=== PATIENT | male | born 1965 | race Caucasian/White ===

== ENCOUNTER 2019-12-25 06:07 | Inpatient (IN) ==
[~2019-12-25 06:07] MED LIST: Acetaminophen IV 1,000 MG/100 ML INFUS..BTL IVPB ONE; Famotidine 20 MG/2 ML VIAL IVP ONE; Pregabalin 75 MG CAPSULE PO PRN
[2019-12-25] MEDS ORDERED: Lidocaine HCL 4 ML Topical Solution (Laryng-O-Jet Kit Sterile Pak) TP ONE (06:17)
[2019-12-25] MEDS ORDERED: *HR* Rocuronium Bromide 50 MG/5 ML VIAL ONE ×2 (06:17→09:13)
[2019-12-25] MEDS ORDERED: Dexamethasone 4 MG/ML VIAL ONE (06:17)
[2019-12-25] MEDS ORDERED: Ondansetron 4 MG/2 ML VIAL ONE (06:17)
[2019-12-25] MEDS ORDERED: Lidocaine -MPF 2% 2 ML VIAL ONE (06:17)
[2019-12-25] MEDS ORDERED: *HR* Phenylephrine 10 MG/ML VIAL ONE (06:18)
[2019-12-25] MEDS ORDERED: *HR* FentaNYL (PF) 100 MCG/2 ML VIAL ONE (06:18)
[2019-12-25] MEDS ORDERED: *HR* Propofol 200 MG/20 ML VIAL IVP ONE (06:18)
[2019-12-25] MEDS ORDERED: Heparin 1,000 UNITS/500 mL 500 ML ONE (06:28)
[2019-12-25] MEDS ORDERED: *HR* Heparin 5,000 UNIT/ML VIAL ONE (06:42)
[2019-12-25] MEDS ORDERED: CeFAZolin Syr 2,000MG/20 ML 2,000 MG/20 ML SYRINGE IVPB ONE (06:44)
[2019-12-25] MEDS ORDERED: Ringers Solution, Lactated 1,000 ML IVC SCH (06:45)
[2019-12-25] MEDS ORDERED: NiCARdipine 2.5 MG/10 ML Syringe IVPB ONE (06:48)
[2019-12-25] MEDS ORDERED: *HR* Remifentanil 2 MG VIAL IVP ONE (07:07)
[2019-12-25] MEDS ORDERED: Heparin 1,000 UNITS/500 mL 1,000 ML ONE (07:14)
[2019-12-25] MEDS ORDERED: *HR* Midazolam HCl 2 MG/2 ML VIAL ONE (07:24)
[2019-12-25 07:34] LABS: Adenovirus Not Detected (Not Detect); Bordetella Pertussis Not Detected (Not Detect); Chlamydophila pneumoniae Not Detected (Not Detect); Coronavirus 229E Not Detected (Not Detect); Coronavirus HKU1 Not Detected (Not Detect); Coronavirus NL63 Not Detected (Not Detect); Coronavirus OC43 Not Detected (Not Detect); Human Metapneumovirus Not Detected (Not Detect); Human Rhinovirus/Enterovirus Not Detected (Not Detect); Influenza A Subtype 2009 H1 Not Detected (Not Detect); Influenza B Not Detected (Not Detect); Mycoplasma pneumoniae Not Detected (Not Detect); Parainfluenza Virus 1 Not Detected (Not Detect); Parainfluenza Virus 2 Not Detected (Not Detect); Parainfluenza Virus 3 Not Detected (Not Detect); Parainfluenza Virus 4 Not Detected (Not Detect); Respiratory Syncytial Virus Not Detected (Not Detect); SARS-CoV-2 Not Detected (Not Detect)
[2019-12-25] MEDS ORDERED: ceFAZolin 1,000 MG, Sodium Chloride IRRigation 1,000 ML IR ONE (07:45)
[2019-12-25] MEDS ORDERED: *HR* Meperidine 25 MG/ML SYRINGE IVP PRN (07:48)
[2019-12-25] MEDS ORDERED: Ondansetron 4 MG/2 ML VIAL IVP PRN ×2 (07:48→13:30)
[2019-12-25] MEDS ORDERED: *HR* Labetalol 20 MG/4 ML SYRINGE IVP PRN (07:48)
[2019-12-25] MEDS ORDERED: Albuterol 2.5 MG/3 ML NEBULIZER IH PRN (07:48)
[2019-12-25] MEDS ORDERED: Naloxone 0.4 MG/ML INJ IVP PRN ×2 (07:48→13:30)
[2019-12-25] MEDS ORDERED: flumazeniL 0.5 MG/5 ML VIAL IVP PRN (07:48)
[2019-12-25] MEDS ORDERED: *HR* FentaNYL (PF) 100 MCG/2 ML VIAL IVP PRN (07:48)
[2019-12-25] MEDS ORDERED: *HR* HYDROmorphone PF 0.5 MG/0.5 ML SYRINGE IVP PRN (07:48)
[2019-12-25] MEDS ORDERED: Neostigmine Methylsulfate 3 MG/3 ML SYRINGE ONE (12:16)
[2019-12-25] MEDS ORDERED: Acetaminophen 325 MG TABLET PO PRN (13:30)
[2019-12-25] MEDS: *HR* Labetalol 20 MG/4 ML SYRINGE IVP PRN ×2 (14:02→22:15)
[2019-12-25] MEDS: *HR* HYDROcodone/Acet 5/325 mg TABLET PO PRN ×2 (14:03→22:54)
[2019-12-25] MEDS: CeFAZolin 2 GM/120 ML BAG IVPB SCH ×2 (15:42→23:27)
[2019-12-26 04:12] LABS: Basophils % 0.2 %; Eosinophils # 0.1 K/mcL (0.0-0.6); Eosinophils % 0.6 %; Hematocrit 34.7 % (37.5-50.1); Hemoglobin 11.6 g/dL (12.9-16.9); Immature Granulocytes % 0.2 % (0-4); Lymphocytes # 2.1 K/mcL (0.6-4.6); Lymphocytes % 16.9 %; Mean Corpuscular HGB Conc 33.4 g/dL (31.6-35.5); Mean Corpuscular Hemoglobin 33.5 pg (28.0-33.3); Mean Corpuscular Volume 100.3 fL (83.0-100.0); Monocytes # 1.9 K/mcL (0.0-1.3); Monocytes % 15.7 %; Neutrophils # 8.2 K/mcL (1.6-8.9); Platelet Count 237 K/mcL (140-400); Red Blood Count 3.46 M/mcL (4.19-5.50); Red Cell Distribution Width 12.6 % (11.5-14.5); Segmented Neutrophils % 66.4 %; White Blood Count 12.3 K/mcL (4.3-11.1)
[2019-12-26 04:33] LABS: BUN/Creatinine Ratio 13 (6-26); Blood Urea Nitrogen 9 mg/dL (6-20); Carbon Dioxide 28 mEq/L (23-29); Chloride 101 mEq/L (98-107); Glucose 127 mg/dL (70-105); Osmolality,Calculated 282 (280-300); Potassium 4.1 mEq/L (3.5-5.1); Sodium 136 mEq/L (136-145); eGFR For African Americans > 60 (> 60); eGFR For Non-African Americans > 60 (> 60)
[2019-12-26] MEDS: Cholecalciferol (D-3) 1,000 UNIT (25MCG) TABLET PO SCH (08:25)
[2019-12-26] MEDS: *HR* HYDROcodone/Acet 5/325 mg TABLET PO PRN (08:25)
[2019-12-26] MEDS: CeFAZolin 2 GM/120 ML BAG IVPB SCH (08:29)
[2019-12-26] MEDS: *HR* Labetalol 20 MG/4 ML SYRINGE IVP PRN (12:45)
[2019-12-26] MEDS: lisinopriL 20 MG TABLET PO SCH (14:13)
[2019-12-27] MEDS: lisinopriL 20 MG TABLET PO SCH (09:28)
[2019-12-27 09:38] VITALS: BP 123/79
[2019-12-27] MEDS: Cholecalciferol (D-3) 1,000 UNIT (25MCG) TABLET PO SCH (11:28)
[2019-12-28] MEDS ORDERED: LISINOPRIL 30 MG PO SCH (09:00)
== END 2019-12-27 13:25 | disposition home or self-care (01) | DRG 254 ==
LOC: SAMDAY 06:07 → ICNU 13:09
PROVIDERS: ADMIT Surgery Vascular Surgery; ATTEND Surgery Vascular Surgery

== ENCOUNTER 2020-08-22 15:35 | Inpatient (IN) ==
[2020-08-22] MEDS ORDERED: Isovue-370 500 ML BOTTLE IVP ONE (16:31)
[2020-08-22] MEDS ORDERED: *HR* Heparin 5,000 UNIT/ML VIAL IVP ONE (18:38)
[2020-08-22] MEDS ORDERED: *HR* Heparin 5,000 UNIT/ML VIAL IVP PRN (18:38)
[2020-08-22] MEDS: Heparin 25,000UNIT/250ML 1/2NS 25,000 UNIT/250 ML IV.SOLN IVC SCH (19:01)
[2020-08-22 19:03] LABS: Hemoglobin 14.5 g/dL (12.9-16.9); Mean Corpuscular Hemoglobin 32.4 pg (28.0-33.3); Mean Corpuscular Volume 98.2 fL (83.0-100.0); Mean Platelet Volume 9.7 fL (9.4-12.4); Platelet Count 314 K/mcL (140-400); Red Blood Count 4.48 M/mcL (4.19-5.50); White Blood Count 8.5 K/mcL (4.3-11.1)
[2020-08-22 19:10] LABS: INR 1.1; Prothrombin Time 12.8 Seconds (9.4-12.1)
[2020-08-22 19:21] LABS: Heparin anti-factor XA UFH 0.05 IU/mL (0.30-0.70)
[2020-08-22] MEDS ORDERED: Naloxone 0.4 MG/ML INJ IVP PRN (21:58)
[2020-08-22] MEDS ORDERED: Melatonin 3 MG TABLET PO PRN (21:58)
[2020-08-22] MEDS ORDERED: Acetaminophen 325 MG TABLET PO PRN (21:58)
[2020-08-22] MEDS ORDERED: Ondansetron 4 MG/2 ML VIAL IVP PRN (21:58)
[2020-08-22 22:05] LABS: Alanine Aminotransferase 18 Units/L (7-52); Albumin 3.9 g/dL (3.5-5.7); Albumin/Globulin Ratio 1.4 (1.1-2.2); Alkaline Phosphatase 71 Units/L (34-104); Aspartate Amino Transferase 17 Units/L (13-39); BUN/Creatinine Ratio 10 (6-26); Bilirubin,Total 0.6 mg/dL (0.3-1.0); Blood Urea Nitrogen 8 mg/dL (6-20); Calcium 9.4 mg/dL (8.6-10.3); Carbon Dioxide 29 mEq/L (23-29); Chloride 101 mEq/L (98-107); Globulin 2.8 g/dL (2.4-3.5); Glucose 95 mg/dL (70-105); Osmolality,Calculated 284 (280-300); Potassium 4.9 mEq/L (3.5-5.1); Sodium 138 mEq/L (136-145); Total Protein 6.7 g/dL (6.4-8.9); eGFR For African Americans > 60 (> 60); eGFR For Non-African Americans > 60 (> 60)
[2020-08-23 01:00] LABS: Basophils # 0.1 K/mcL (0.0-0.2); Basophils % 0.5 %; Eosinophils # 0.3 K/mcL (0.0-0.6); Eosinophils % 2.7 %; Hematocrit 44.4 % (37.5-50.1); Hemoglobin 14.7 g/dL (12.9-16.9); Immature Granulocytes % 0.3 % (0-4); Lymphocytes # 2.6 K/mcL (0.6-4.6); Lymphocytes % 28.4 %; Mean Corpuscular HGB Conc 33.1 g/dL (31.6-35.5); Mean Corpuscular Hemoglobin 32.1 pg (28.0-33.3); Mean Corpuscular Volume 96.9 fL (83.0-100.0); Mean Platelet Volume 9.7 fL (9.4-12.4); Monocytes # 1.3 K/mcL (0.0-1.3); Monocytes % 13.9 %; Neutrophils # 4.9 K/mcL (1.6-8.9); Platelet Count 320 K/mcL (140-400); Red Blood Count 4.58 M/mcL (4.19-5.50); Segmented Neutrophils % 54.2 %; White Blood Count 9.1 K/mcL (4.3-11.1)
[2020-08-23 01:24] LABS: BUN/Creatinine Ratio 12 (6-26); Blood Urea Nitrogen 10 mg/dL (6-20); Calcium 9.6 mg/dL (8.6-10.3); Carbon Dioxide 30 mEq/L (23-29); Chloride 102 mEq/L (98-107); Glucose 123 mg/dL (70-105); Osmolality,Calculated 286 (280-300); Phosphorous 3.2 mg/dL (2.7-4.5); Potassium 4.2 mEq/L (3.5-5.1); Sodium 138 mEq/L (136-145); eGFR For African Americans > 60 (> 60); eGFR For Non-African Americans > 60 (> 60)
[2020-08-23] MEDS: *HR* Heparin 5,000 UNIT/ML VIAL IVP PRN ×3 (01:24→21:31)
[2020-08-23] MEDS: Heparin 25,000UNIT/250ML 1/2NS 25,000 UNIT/250 ML IV.SOLN IVC SCH (20:52)
[2020-08-24 03:46] LABS: Basophils # 0.1 K/mcL (0.0-0.2); Basophils % 0.6 %; Eosinophils # 0.4 K/mcL (0.0-0.6); Eosinophils % 4.4 %; Hematocrit 45.2 % (37.5-50.1); Hemoglobin 15.1 g/dL (12.9-16.9); Immature Granulocytes % 0.2 % (0-4); Lymphocytes # 2.4 K/mcL (0.6-4.6); Lymphocytes % 23.9 %; Mean Corpuscular HGB Conc 33.4 g/dL (31.6-35.5); Mean Corpuscular Hemoglobin 32.5 pg (28.0-33.3); Mean Corpuscular Volume 97.2 fL (83.0-100.0); Mean Platelet Volume 9.8 fL (9.4-12.4); Monocytes # 1.2 K/mcL (0.0-1.3); Monocytes % 11.8 %; Platelet Count 316 K/mcL (140-400); Red Blood Count 4.65 M/mcL (4.19-5.50); Segmented Neutrophils % 59.1 %; White Blood Count 10.1 K/mcL (4.3-11.1)
[2020-08-24 04:01] LABS: BUN/Creatinine Ratio 19 (6-26); Blood Urea Nitrogen 15 mg/dL (6-20); Calcium 9.2 mg/dL (8.6-10.3); Carbon Dioxide 24 mEq/L (23-29); Chloride 100 mEq/L (98-107); Glucose 105 mg/dL (70-105); Osmolality,Calculated 281 (280-300); Potassium 4.3 mEq/L (3.5-5.1); Sodium 135 mEq/L (136-145); eGFR For African Americans > 60 (> 60); eGFR For Non-African Americans > 60 (> 60)
[2020-08-24] MEDS: Cholecalciferol (D-3) 1,000 UNIT (25MCG) TABLET PO SCH (08:20)
[2020-08-24] MEDS: lisinopriL 10 MG TABLET PO SCH (08:21)
[2020-08-24] MEDS: Cyanocobalamin (B-12) 1,000 MCG TABLET PO SCH (08:21)
[2020-08-24] MEDS: Heparin 25,000UNIT/250ML 1/2NS 25,000 UNIT/250 ML IV.SOLN IVC SCH (19:59)
[2020-08-25 05:33] LABS: Basophils # 0.1 K/mcL (0.0-0.2); Basophils % 0.5 %; Eosinophils # 0.5 K/mcL (0.0-0.6); Eosinophils % 5.7 %; Hematocrit 45.5 % (37.5-50.1); Hemoglobin 15.7 g/dL (12.9-16.9); Immature Granulocytes % 0.1 % (0-4); Lymphocytes # 2.6 K/mcL (0.6-4.6); Lymphocytes % 28.2 %; Mean Corpuscular HGB Conc 34.5 g/dL (31.6-35.5); Mean Corpuscular Hemoglobin 33.1 pg (28.0-33.3); Mean Corpuscular Volume 95.8 fL (83.0-100.0); Mean Platelet Volume 9.8 fL (9.4-12.4); Monocytes # 1.2 K/mcL (0.0-1.3); Monocytes % 12.6 %; Neutrophils # 4.8 K/mcL (1.6-8.9); Platelet Count 336 K/mcL (140-400); Red Blood Count 4.75 M/mcL (4.19-5.50); Red Cell Distribution Width 11.8 % (11.5-14.5); Segmented Neutrophils % 52.9 %; White Blood Count 9.1 K/mcL (4.3-11.1)
[2020-08-25 05:52] LABS: BUN/Creatinine Ratio 21 (6-26); Blood Urea Nitrogen 18 mg/dL (6-20); Calcium 9.5 mg/dL (8.6-10.3); Carbon Dioxide 26 mEq/L (23-29); Chloride 102 mEq/L (98-107); Glucose 112 mg/dL (70-105); Osmolality,Calculated 281 (280-300); Potassium 4.4 mEq/L (3.5-5.1); Sodium 134 mEq/L (136-145); eGFR For African Americans > 60 (> 60); eGFR For Non-African Americans > 60 (> 60)
[2020-08-25] MEDS: Cholecalciferol (D-3) 1,000 UNIT (25MCG) TABLET PO SCH (07:53)
[2020-08-25] MEDS: Cyanocobalamin (B-12) 1,000 MCG TABLET PO SCH (07:53)
[2020-08-25] MEDS: lisinopriL 10 MG TABLET PO SCH (07:53)
[2020-08-25] MEDS ORDERED: CeFAZolin Syr 2,000MG/20 ML 2,000 MG/20 ML SYRINGE IVPB ONE ×3 (12:00→18:01)
[2020-08-25] MEDS ORDERED: Protamine Sulfate 50 MG/5 ML VIAL IVP ONE (12:17)
[2020-08-25] MEDS ORDERED: Heparin 1,000 UNITS/500 mL 1,000 ML ONE (12:17)
[2020-08-25] MEDS ORDERED: Ondansetron 4 MG/2 ML VIAL ONE (12:18)
[2020-08-25] MEDS ORDERED: *HR* Rocuronium Bromide 50 MG/5 ML VIAL ONE ×2 (12:18→14:16)
[2020-08-25] MEDS ORDERED: Lidocaine -MPF 2% 2 ML VIAL ONE (12:18)
[2020-08-25] MEDS ORDERED: *HR* Remifentanil 1 MG VIAL IVP ONE ×2 (12:19→15:41)
[2020-08-25] MEDS ORDERED: *HR* Midazolam HCl 2 MG/2 ML VIAL ONE (12:19)
[2020-08-25] MEDS ORDERED: *HR* Propofol 200 MG/20 ML VIAL IVP ONE (12:19)
[2020-08-25] MEDS ORDERED: *HR* FentaNYL (PF) 100 MCG/2 ML VIAL ONE (12:19)
[2020-08-25] MEDS ORDERED: Heparin 1,000 UNITS/500 mL 0 ML ONE (12:26)
[2020-08-25] MEDS ORDERED: Albumin Human 5% 12.5 GM/250 ML IV.SOLN ONE (12:32)
[2020-08-25] MEDS ORDERED: Acetaminophen IV 1,000 MG/100 ML BAG IVPB ONE (12:32)
[2020-08-25] MEDS ORDERED: EPHEDrine 50 MG/ML VIAL ONE (12:39)
[2020-08-25] MEDS ORDERED: Lidocaine Jelly 6ml 1 APPL/6 ML JEL.PF.APP ONE (13:28)
[2020-08-25] MEDS ORDERED: *HR* Phenylephrine 10 MG/ML VIAL ONE (14:26)
[2020-08-25] MEDS ORDERED: *HR* Heparin 5,000 UNIT/ML VIAL ONE (14:49)
[2020-08-25] MEDS ORDERED: Vancomycin 1,000 MG VIAL ONE (16:19)
[2020-08-25] MEDS ORDERED: Sugammadex Sodium 200 MG/2 ML VIAL IV ONE (16:22)
[2020-08-25] MEDS ORDERED: *HR* HYDROmorphone (PF) 1 MG/ML SYRINGE ONE (17:13)
[2020-08-25] MEDS: *HR* HYDROmorphone PF 0.5 MG/0.5 ML SYRINGE IVP PRN ×3 (17:14→17:25)
[2020-08-25] MEDS ORDERED: Ringers Solution, Lactated 1,000 ML ONE (17:36)
[2020-08-25] MEDS ORDERED: Acetaminophen 325 MG TABLET PO PRN (18:01)
[2020-08-25] MEDS ORDERED: Naloxone 0.4 MG/ML INJ IVP PRN ×2 (18:01)
[2020-08-25] MEDS ORDERED: *HR* Labetalol 20 MG/4 ML SYRINGE IVP PRN (18:01)
[2020-08-25] MEDS ORDERED: Melatonin 3 MG TABLET PO PRN (18:01)
[2020-08-25] MEDS ORDERED: Ondansetron 4 MG/2 ML VIAL IVP PRN (18:01)
[2020-08-25] MEDS: *HR* OxyCODONE Immed Rel 5 MG TABLET PO PRN (21:18)
[2020-08-25] MEDS: CeFAZolin 2 GM/120 ML BAG IVPB SCH (21:57)
[2020-08-26] MEDS ORDERED: CeFAZolin 2 GM/120 ML BAG IVPB SCH
[2020-08-26] MEDS: *HR* OxyCODONE Immed Rel 5 MG TABLET PO PRN (04:13)
[2020-08-26 05:14] LABS: Basophils % 0.1 %; Eosinophils % 0.1 %; Hematocrit 40.4 % (37.5-50.1); Immature Granulocytes % 0.4 % (0-4); Lymphocytes # 1.9 K/mcL (0.6-4.6); Lymphocytes % 13.3 %; Mean Corpuscular HGB Conc 33.7 g/dL (31.6-35.5); Mean Corpuscular Hemoglobin 33.1 pg (28.0-33.3); Mean Corpuscular Volume 98.3 fL (83.0-100.0); Monocytes # 2.3 K/mcL (0.0-1.3); Monocytes % 15.8 %; Platelet Count 285 K/mcL (140-400); Red Blood Count 4.11 M/mcL (4.19-5.50); Red Cell Distribution Width 11.9 % (11.5-14.5); Segmented Neutrophils % 70.3 %
[2020-08-26 05:15] LABS: Hemoglobin 13.6 g/dL (12.9-16.9); Neutrophils # 10.1 K/mcL (1.6-8.9); White Blood Count 14.3 K/mcL (4.3-11.1)
[2020-08-26] MEDS: CeFAZolin 2 GM/120 ML BAG IVPB SCH ×2 (05:28→14:20)
[2020-08-26 05:37] LABS: BUN/Creatinine Ratio 19 (6-26); Blood Urea Nitrogen 27 mg/dL (6-20); Calcium 9.1 mg/dL (8.6-10.3); Carbon Dioxide 28 mEq/L (23-29); Chloride 101 mEq/L (98-107); Glucose 139 mg/dL (70-105); Osmolality,Calculated 285 (280-300); Sodium 134 mEq/L (136-145); eGFR For African Americans > 60 (> 60); eGFR For Non-African Americans 53 (> 60)
[2020-08-26] MEDS: Cholecalciferol (D-3) 1,000 UNIT (25MCG) TABLET PO SCH (08:28)
[2020-08-26] MEDS: lisinopriL 10 MG TABLET PO SCH (08:29)
[2020-08-26] MEDS: Cyanocobalamin (B-12) 1,000 MCG TABLET PO SCH (08:30)
[2020-08-26] MEDS: 0.9 % Sodium Chloride 1,000 ML IVC SCH ×2 (09:05→19:15)
[2020-08-26] MEDS: *HR* HYDROcodone/Acet 5/325 mg TABLET PO PRN ×2 (11:19→21:48)
[2020-08-27] MEDS: *HR* OxyCODONE Immed Rel 5 MG TABLET PO PRN (03:18)
[2020-08-27] MEDS: 0.9 % Sodium Chloride 1,000 ML IVC SCH (05:17)
[2020-08-27] MEDS: Cyanocobalamin (B-12) 1,000 MCG TABLET PO SCH (07:14)
[2020-08-27] MEDS: lisinopriL 10 MG TABLET PO SCH (07:14)
[2020-08-27] MEDS: Cholecalciferol (D-3) 1,000 UNIT (25MCG) TABLET PO SCH (07:14)
[2020-08-27 09:11] LABS: BUN/Creatinine Ratio 23 (6-26); Blood Urea Nitrogen 18 mg/dL (6-20); Carbon Dioxide 26 mEq/L (23-29); Chloride 102 mEq/L (98-107); Glucose 109 mg/dL (70-105); Osmolality,Calculated 286 (280-300); Potassium 4.5 mEq/L (3.5-5.1); Sodium 137 mEq/L (136-145); eGFR For African Americans > 60 (> 60); eGFR For Non-African Americans > 60 (> 60)
[2020-08-27] MEDS: *HR* HYDROcodone/Acet 5/325 mg TABLET PO PRN (11:01)
[2020-08-27 11:16] VITALS: BP 137/88
== END 2020-08-27 17:55 | disposition home or self-care (01) | DRG 253 ==
LOC: 2NNU 15:35 → EMEROOARM 15:35 → SUATTDRO 20:29 → 2NNU 21:40 → SUATTDRO 08-24 17:19
PROVIDERS: ADMIT Student in an Organized Health Care Education/Training Program; ATTEND Internal Medicine

== ENCOUNTER 2020-10-14 06:03 | Inpatient (IN) ==
[2020-10-14] MEDS ORDERED: CeFAZolin Syr 2,000MG/20 ML 2,000 MG/20 ML SYRINGE IVPB ONE (06:19)
[2020-10-14] MEDS ORDERED: Ringers Solution, Lactated 1,000 ML IVC SCH (06:30)
[2020-10-14] MEDS ORDERED: Protamine Sulfate 50 MG/5 ML VIAL IVP ONE (07:17)
[2020-10-14] MEDS ORDERED: Heparin 1,000 UNITS/500 mL 500 ML ONE ×2 (07:17→12:14)
[2020-10-14] MEDS ORDERED: *HR* OxyCODONE Immed Rel 5 MG TABLET PO PRN (07:18)
[2020-10-14] MEDS ORDERED: Famotidine 20 MG/2 ML VIAL IVP ONE (07:18)
[2020-10-14] MEDS ORDERED: Pregabalin 75 MG CAPSULE PO ONE (07:18)
[2020-10-14] MEDS ORDERED: *HR* HYDROmorphone 2 MG TABLET PO PRN (07:18)
[2020-10-14] MEDS ORDERED: Acetaminophen IV 1,000 MG/100 ML BAG IVPB ONE ×2 (07:18→10:04)
[2020-10-14] MEDS ORDERED: *HR* FentaNYL (PF) 100 MCG/2 ML VIAL ONE (07:21)
[2020-10-14] MEDS ORDERED: *HR* Propofol 200 MG/20 ML VIAL IVP ONE (07:22)
[2020-10-14] MEDS ORDERED: *HR* Midazolam HCl 2 MG/2 ML VIAL ONE (07:22)
[2020-10-14] MEDS ORDERED: Lidocaine -MPF 2% 2 ML VIAL ONE ×2 (07:23→14:38)
[2020-10-14] MEDS ORDERED: *HR* Rocuronium Bromide 50 MG/5 ML VIAL ONE ×2 (07:23→08:25)
[2020-10-14] MEDS ORDERED: *HR* Succinylcholine 200 MG/10 ML VIAL IVP ONE (07:23)
[2020-10-14] MEDS ORDERED: Lidocaine HCL 4 ML Topical Solution (Laryng-O-Jet Kit Sterile Pak) TP ONE (07:23)
[2020-10-14] MEDS ORDERED: Ondansetron 4 MG/2 ML VIAL ONE (07:23)
[2020-10-14] MEDS ORDERED: *HR* Phenylephrine 10 MG/ML VIAL ONE (07:29)
[2020-10-14] MEDS ORDERED: ceFAZolin 1,000 MG, Sodium Chloride IRRigation 1,000 ML IR ONE (07:45)
[2020-10-14] MEDS ORDERED: Lidocaine Jelly 6ml 1 APPL/6 ML JEL.PF.APP ONE (08:20)
[2020-10-14] MEDS ORDERED: *HR* HYDROMORPHONE 2 MG/ML VIAL ONE (08:38)
[2020-10-14] MEDS ORDERED: Sugammadex Sodium 200 MG/2 ML VIAL IV ONE (12:19)
[2020-10-14] MEDS ORDERED: *HR* Labetalol 20 MG/4 ML SYRINGE IVP ONE (14:57)
[2020-10-14] MEDS: *HR* HYDROmorphone (PF) 1 MG/ML SYRINGE IVP PRN ×4 (15:43→16:20)
[2020-10-14] MEDS: *HR* Labetalol 20 MG/4 ML SYRINGE IVP PRN ×4 (16:00→16:20)
[2020-10-14] MEDS ORDERED: *HR* Labetalol 20 MG/4 ML SYRINGE IVP PRN (17:06)
[2020-10-14] MEDS ORDERED: Naloxone 0.4 MG/ML INJ IVP PRN (17:06)
[2020-10-14] MEDS ORDERED: Ondansetron 4 MG/2 ML VIAL IVP PRN (17:06)
[2020-10-14] MEDS ORDERED: *HR* HYDROcodone/Acet 5/325 mg TABLET PO PRN (17:37)
[2020-10-14] MEDS ORDERED: *HR* HYDROmorphone (PF) 1 MG/ML SYRINGE IVP PRN (17:38)
[2020-10-14] MEDS ORDERED: Acetaminophen 325 MG TABLET PO PRN (17:42)
[2020-10-14] MEDS: *HR* OxyCODONE Immed Rel 5 MG TABLET PO PRN (18:16)
[2020-10-14] MEDS: CeFAZolin 2 GM/120 ML BAG IVPB SCH (18:17)
[2020-10-15] MEDS: *HR* OxyCODONE Immed Rel 5 MG TABLET PO PRN ×2 (00:16→09:10)
[2020-10-15] MEDS: CeFAZolin 2 GM/120 ML BAG IVPB SCH ×2 (00:16→07:54)
[2020-10-15 03:57] LABS: Basophils % 0.2 %; Eosinophils % 0.2 %; Hematocrit 34.9 % (37.5-50.1); Hemoglobin 11.9 g/dL (12.9-16.9); Immature Granulocytes % 0.3 % (0-4); Lymphocytes # 1.9 K/mcL (0.6-4.6); Mean Corpuscular HGB Conc 34.1 g/dL (31.6-35.5); Mean Corpuscular Hemoglobin 33.3 pg (28.0-33.3); Mean Corpuscular Volume 97.8 fL (83.0-100.0); Mean Platelet Volume 10.1 fL (9.4-12.4); Monocytes # 1.9 K/mcL (0.0-1.3); Monocytes % 15.6 %; Neutrophils # 8.5 K/mcL (1.6-8.9); Platelet Count 201 K/mcL (140-400); Red Blood Count 3.57 M/mcL (4.19-5.50); Red Cell Distribution Width 12.6 % (11.5-14.5); Segmented Neutrophils % 68.7 %; White Blood Count 12.3 K/mcL (4.3-11.1)
[2020-10-15 04:18] LABS: BUN/Creatinine Ratio 17 (6-26); Blood Urea Nitrogen 12 mg/dL (6-20); Calcium 8.4 mg/dL (8.6-10.3); Carbon Dioxide 27 mEq/L (23-29); Chloride 101 mEq/L (98-107); Glucose 140 mg/dL (70-105); Osmolality,Calculated 280 (280-300); Sodium 134 mEq/L (136-145); eGFR For African Americans > 60 (> 60); eGFR For Non-African Americans > 60 (> 60)
[2020-10-15] MEDS ORDERED: lisinopriL 10 MG TABLET PO SCH (09:00)
[2020-10-15] MEDS ORDERED: Cholecalciferol (D-3) 1,000 UNIT (25MCG) TABLET PO SCH (09:00)
[2020-10-15] MEDS ORDERED: Cyanocobalamin (B-12) 1,000 MCG TABLET PO SCH (09:00)
[2020-10-15] MEDS ORDERED: *HR* Heparin 5,000 UNIT/ML VIAL IVP ONE (17:19)
[2020-10-15] MEDS ORDERED: *HR* Midazolam HCl 2 MG/2 ML VIAL ONE (17:26)
[2020-10-15] MEDS ORDERED: *HR* FentaNYL (PF) 100 MCG/2 ML VIAL ONE (17:26)
[2020-10-15] MEDS ORDERED: *HR* Propofol 200 MG/20 ML VIAL IVP ONE (17:27)
[2020-10-15] MEDS ORDERED: Lidocaine -MPF 2% 2 ML VIAL ONE (17:28)
[2020-10-15] MEDS ORDERED: Ondansetron 4 MG/2 ML VIAL ONE (17:28)
[2020-10-15] MEDS ORDERED: Heparin 25,000UNIT/250ML 1/2NS 25,000 UNIT/250 ML IV.SOLN IVC SCH ×2 (17:30→22:59)
[2020-10-15] MEDS ORDERED: Heparin 1,000 UNITS/500 mL 1,000 ML ONE ×2 (17:32→19:51)
[2020-10-15] MEDS ORDERED: Heparin 1,000 UNITS/500 mL 500 ML ONE (17:35)
[2020-10-15] MEDS ORDERED: *HR* Rocuronium Bromide 50 MG/5 ML VIAL ONE ×2 (17:45→19:24)
[2020-10-15] MEDS ORDERED: Acetaminophen IV 1,000 MG/100 ML BAG IVPB ONE (18:20)
[2020-10-15] MEDS ORDERED: ceFAZolin 2,000 MG in Water for inj. (sterile) 20 ML IVP ONE (19:00)
[2020-10-15] MEDS ORDERED: *HR* HYDROMORPHONE 2 MG/ML VIAL ONE (19:17)
[2020-10-15] MEDS ORDERED: *HR* Labetalol 20 MG/4 ML SYRINGE IVP ONE (19:27)
[2020-10-15] MEDS ORDERED: CeFAZolin Syr 2,000MG/20 ML 2,000 MG/20 ML SYRINGE IVPB ONE ×2 (19:45→22:59)
[2020-10-15] MEDS ORDERED: *HR* HYDROmorphone PF 0.5 MG/0.5 ML SYRINGE IVP PRN (20:46)
[2020-10-15] MEDS ORDERED: Promethazine 6.25 MG in Water for inj. (sterile) 20 ML IVPB PRN (20:46)
[2020-10-15] MEDS ORDERED: Ondansetron 4 MG/2 ML VIAL IVP PRN ×2 (20:46→22:59)
[2020-10-15] MEDS ORDERED: *HR* OxyCODONE Immed Rel 5 MG TABLET PO PRN (20:46)
[2020-10-15] MEDS ORDERED: Naloxone 0.4 MG/ML INJ IVP PRN (22:59)
[2020-10-15] MEDS ORDERED: *HR* Labetalol 20 MG/4 ML SYRINGE IVP PRN (22:59)
[2020-10-15] MEDS ORDERED: *HR* Heparin 5,000 UNIT/ML VIAL IVP PRN (22:59)
[2020-10-15] MEDS ORDERED: Acetaminophen 325 MG TABLET PO PRN (22:59)
[2020-10-15] MEDS ORDERED: *HR* HYDROmorphone (PF) 1 MG/ML SYRINGE IVP PRN (22:59)
[2020-10-15] MEDS ORDERED: *HR* HYDROcodone/Acet 5/325 mg TABLET PO PRN (22:59)
[2020-10-16 01:14] LABS: Basophils % 0.1 %; Hematocrit 29.5 % (37.5-50.1); Hemoglobin 9.8 g/dL (12.9-16.9); Immature Granulocytes % 0.4 % (0-4); Lymphocytes % 7.6 %; Mean Corpuscular HGB Conc 33.2 g/dL (31.6-35.5); Mean Corpuscular Hemoglobin 32.6 pg (28.0-33.3); Mean Platelet Volume 10.3 fL (9.4-12.4); Monocytes # 1.3 K/mcL (0.0-1.3); Monocytes % 10.3 %; Neutrophils # 10.3 K/mcL (1.6-8.9); Platelet Count 180 K/mcL (140-400); Red Blood Count 3.01 M/mcL (4.19-5.50); Red Cell Distribution Width 12.5 % (11.5-14.5); Segmented Neutrophils % 81.6 %; White Blood Count 12.7 K/mcL (4.3-11.1)
[2020-10-16 01:35] LABS: INR 1.1; Prothrombin Time 13.2 Seconds (9.4-12.1)
[2020-10-16 01:38] LABS: Activated Partial Thrombo Time 46.1 Seconds (26.0-36.0)
[2020-10-16 01:41] LABS: BUN/Creatinine Ratio 17 (6-26); Blood Urea Nitrogen 12 mg/dL (6-20); Calcium 8.3 mg/dL (8.6-10.3); Carbon Dioxide 28 mEq/L (23-29); Chloride 104 mEq/L (98-107); Glucose 136 mg/dL (70-105); Osmolality,Calculated 284 (280-300); Potassium 4.6 mEq/L (3.5-5.1); Sodium 136 mEq/L (136-145); eGFR For African Americans > 60 (> 60); eGFR For Non-African Americans > 60 (> 60)
[2020-10-16] MEDS: CeFAZolin 2 GM/120 ML BAG IVPB SCH ×3 (03:09→18:10)
[2020-10-16] MEDS ORDERED: *HR* Heparin 5,000 UNIT/ML VIAL IVP PRN (08:08)
[2020-10-16] MEDS: Heparin 25,000UNIT/250ML 1/2NS 25,000 UNIT/250 ML IV.SOLN IVC SCH (08:36)
[2020-10-16] MEDS: lisinopriL 10 MG TABLET PO SCH (08:40)
[2020-10-16] MEDS: *HR* Heparin 5,000 UNIT/ML VIAL IVP PRN ×2 (08:40→23:32)
[2020-10-16] MEDS: Cyanocobalamin (B-12) 1,000 MCG TABLET PO SCH (08:41)
[2020-10-16] MEDS: Cholecalciferol (D-3) 1,000 UNIT (25MCG) TABLET PO SCH (08:41)
[2020-10-16] MEDS: *HR* OxyCODONE Immed Rel 5 MG TABLET PO PRN ×2 (14:12→23:32)
[2020-10-17] MEDS: *HR* Heparin 5,000 UNIT/ML VIAL IVP PRN (06:35)
[2020-10-17] MEDS: Heparin 25,000UNIT/250ML 1/2NS 25,000 UNIT/250 ML IV.SOLN IVC SCH (06:36)
[2020-10-17] MEDS: Cyanocobalamin (B-12) 1,000 MCG TABLET PO SCH (07:27)
[2020-10-17] MEDS: Cholecalciferol (D-3) 1,000 UNIT (25MCG) TABLET PO SCH (07:27)
[2020-10-17] MEDS: lisinopriL 10 MG TABLET PO SCH (07:28)
[2020-10-17] MEDS: *HR* OxyCODONE Immed Rel 5 MG TABLET PO PRN (09:47)
[2020-10-17 11:48] VITALS: BP 114/80; TEMP 98; O2SAT 99
[2020-10-17 11:55] VITALS: PULSE 98
[2020-10-17] MEDS ORDERED: *HR* Rivaroxaban 15 MG TABLET PO ONE (14:00)
== END 2020-10-17 15:58 | disposition home or self-care (01) | DRG 253 ==
LOC: SAMDAY 06:03 → 2NNU 16:59
PROVIDERS: ADMIT Surgery Vascular Surgery; ATTEND Surgery Vascular Surgery

== ENCOUNTER 2020-11-04 10:23 | Inpatient (IN) ==
[2020-11-04] MEDS ORDERED: *HR* FentaNYL (PF) 100 MCG/2 ML VIAL ONE (10:42)
[2020-11-04] MEDS ORDERED: *HR* Propofol 200 MG/20 ML VIAL IVP ONE (10:43)
[2020-11-04] MEDS ORDERED: *HR* Midazolam HCl 2 MG/2 ML VIAL ONE (10:43)
[2020-11-04] MEDS ORDERED: Heparin 1,000 UNITS/500 mL 500 ML ONE ×2 (10:43→13:33)
[2020-11-04] MEDS ORDERED: Ondansetron 4 MG/2 ML VIAL ONE (10:46)
[2020-11-04] MEDS ORDERED: Lidocaine -MPF 2% 2 ML VIAL ONE (10:46)
[2020-11-04] MEDS ORDERED: CeFAZolin Syr 2,000MG/20 ML 2,000 MG/20 ML SYRINGE IVPB ONE (10:48)
[2020-11-04] MEDS ORDERED: Ondansetron 4 MG/2 ML VIAL IVP PRN ×2 (10:54→16:49)
[2020-11-04] MEDS ORDERED: *HR* HYDROmorphone PF 0.5 MG/0.5 ML SYRINGE IVP PRN (10:54)
[2020-11-04] MEDS ORDERED: *HR* OxyCODONE Immed Rel 5 MG TABLET PO PRN (10:54)
[2020-11-04] MEDS ORDERED: Ringers Solution, Lactated 1,000 ML IVC SCH (11:00)
[2020-11-04] MEDS ORDERED: *HR* HYDROMORPHONE 2 MG/ML VIAL ONE (12:05)
[2020-11-04] MEDS ORDERED: *HR* Heparin 5,000 UNIT/ML VIAL ONE ×2 (13:15→14:20)
[2020-11-04] MEDS ORDERED: ceFAZolin 1,000 MG, Sodium Chloride IRRigation 1,000 ML IR ONE (15:15)
[2020-11-04] MEDS ORDERED: *HR* Labetalol 20 MG/4 ML SYRINGE IVP PRN (16:49)
[2020-11-04] MEDS ORDERED: *HR* HYDROcodone/Acet 5/325 mg TABLET PO PRN (16:49)
[2020-11-04] MEDS ORDERED: Naloxone 0.4 MG/ML INJ IVP PRN (16:49)
[2020-11-04] MEDS: CeFAZolin 2 GM/120 ML BAG IVPB SCH (19:54)
[2020-11-04] MEDS: *HR* Rivaroxaban 15 MG TABLET PO SCH (19:54)
[2020-11-05 03:22] LABS: Basophils % 0.2 %; Eosinophils % 0.3 %; Hematocrit 32.4 % (37.5-50.1); Hemoglobin 10.8 g/dL (12.9-16.9); Immature Granulocytes % 0.3 % (0-4); Lymphocytes # 2.8 K/mcL (0.6-4.6); Lymphocytes % 17.6 %; Mean Corpuscular HGB Conc 33.3 g/dL (31.6-35.5); Mean Corpuscular Volume 96.1 fL (83.0-100.0); Mean Platelet Volume 9.5 fL (9.4-12.4); Monocytes # 1.6 K/mcL (0.0-1.3); Monocytes % 9.8 %; Neutrophils # 11.3 K/mcL (1.6-8.9); Platelet Count 333 K/mcL (140-400); Red Blood Count 3.37 M/mcL (4.19-5.50); Red Cell Distribution Width 12.8 % (11.5-14.5); Segmented Neutrophils % 71.8 %; White Blood Count 15.7 K/mcL (4.3-11.1)
[2020-11-05 03:40] LABS: BUN/Creatinine Ratio 14 (6-26); Blood Urea Nitrogen 14 mg/dL (6-20); Calcium 9.1 mg/dL (8.6-10.3); Carbon Dioxide 26 mEq/L (23-29); Chloride 99 mEq/L (98-107); Glucose 110 mg/dL (70-105); Osmolality,Calculated 277 (280-300); Potassium 4.5 mEq/L (3.5-5.1); Sodium 133 mEq/L (136-145); eGFR For African Americans > 60 (> 60); eGFR For Non-African Americans > 60 (> 60)
[2020-11-05] MEDS: CeFAZolin 2 GM/120 ML BAG IVPB SCH ×2 (04:53→11:12)
[2020-11-05] MEDS: lisinopriL 10 MG TABLET PO SCH (07:39)
[2020-11-05] MEDS: *HR* Rivaroxaban 15 MG TABLET PO SCH ×2 (07:39→16:59)
[2020-11-05] MEDS: Cholecalciferol (D-3) 1,000 UNIT (25MCG) TABLET PO SCH (07:40)
[2020-11-05] MEDS: Cyanocobalamin (B-12) 1,000 MCG TABLET PO SCH (07:40)
[2020-11-05] MEDS: *HR* OxyCODONE Immed Rel 5 MG TABLET PO PRN ×2 (11:12→16:59)
[2020-11-05] MEDS: Acetaminophen 325 MG TABLET PO PRN ×2 (11:12→16:59)
[2020-11-06] MEDS: *HR* OxyCODONE Immed Rel 5 MG TABLET PO PRN ×2 (01:05→08:59)
[2020-11-06] MEDS: lisinopriL 10 MG TABLET PO SCH (08:27)
[2020-11-06] MEDS: Cholecalciferol (D-3) 1,000 UNIT (25MCG) TABLET PO SCH (08:28)
[2020-11-06] MEDS: Cyanocobalamin (B-12) 1,000 MCG TABLET PO SCH (08:28)
[2020-11-06] MEDS: *HR* Rivaroxaban 15 MG TABLET PO SCH (08:28)
[2020-11-06] MEDS: Acetaminophen 325 MG TABLET PO PRN (08:59)
[2020-11-06 09:20] VITALS: BP 121/85; TEMP 98
[2020-11-06 11:23] VITALS: PULSE 105
[2020-11-06 13:55] VITALS: O2SAT 93
== END 2020-11-06 14:50 | disposition home or self-care (01) | DRG 253 ==
LOC: SAMDAY 10:23 → 2NNU 16:49
PROVIDERS: ADMIT Surgery Vascular Surgery; ATTEND Surgery Vascular Surgery

== ENCOUNTER 2020-12-09 13:32 | Inpatient (IN) ==
[~2020-12-09 13:32] MED LIST changes: +Acetaminophen IV 1,000 MG/100 ML BAG IVPB ONE; -Acetaminophen IV 1,000 MG/100 ML INFUS..BTL IVPB ONE; -Famotidine 20 MG/2 ML VIAL IVP ONE; -Pregabalin 75 MG CAPSULE PO PRN; +Ringers Solution, Lactated 1,000 ML IVC ONE
[2020-12-09] MEDS ORDERED: CeFAZolin Syr 2,000MG/20 ML 2,000 MG/20 ML SYRINGE IVPB ONE (14:15)
[2020-12-09] MEDS ORDERED: Ringers Solution, Lactated 1,000 ML IVC ONE (14:35)
[2020-12-09] MEDS ORDERED: *HR* OxyCODONE/APAP 5/325 TABLET PO ONE (14:35)
[2020-12-09] MEDS ORDERED: *HR* Propofol 200 MG/20 ML VIAL IVP ONE (15:54)
[2020-12-09] MEDS ORDERED: *HR* Midazolam HCl 2 MG/2 ML VIAL ONE (15:54)
[2020-12-09] MEDS ORDERED: *HR* FentaNYL (PF) 100 MCG/2 ML VIAL ONE ×2 (15:54→18:08)
[2020-12-09] MEDS ORDERED: Famotidine 20 MG/2 ML VIAL IVP ONE (16:30)
[2020-12-09] MEDS ORDERED: Lidocaine HCL 4 ML Topical Solution (Laryng-O-Jet Kit Sterile Pak) TP ONE (17:30)
[2020-12-09] MEDS ORDERED: ceFAZolin 1,000 MG, Sodium Chloride IRRigation 1,000 ML IR ONE (17:30)
[2020-12-09] MEDS ORDERED: *HR* Rocuronium Bromide 50 MG/5 ML VIAL ONE (17:30)
[2020-12-09] MEDS ORDERED: *HR* HYDROMORPHONE 2 MG/ML VIAL ONE (18:25)
[2020-12-09] MEDS ORDERED: Ondansetron 4 MG/2 ML VIAL IVP PRN ×2 (19:08→20:53)
[2020-12-09] MEDS ORDERED: Nitroglycerin 0.4 MG TAB.SUBL SL PRN (19:08)
[2020-12-09] MEDS ORDERED: Naloxone 0.4 MG/ML INJ IVP PRN (19:08)
[2020-12-09] MEDS ORDERED: Albuterol 2.5 MG/3 ML NEBULIZER IH PRN (19:08)
[2020-12-09] MEDS ORDERED: Sugammadex Sodium 200 MG/2 ML VIAL IV ONE (19:23)
[2020-12-09] MEDS ORDERED: 0.9 % Sodium Chloride 1,000 ML IVC SCH (20:53)
[2020-12-09] MEDS ORDERED: Acetaminophen 325 MG TABLET PO PRN (20:53)
[2020-12-10] MEDS: CeFAZolin 2 GM/120 ML BAG IVPB SCH ×3 (00:52→16:33)
[2020-12-10] MEDS: *HR* HYDROcodone/Acet 7.5/325 mg TABLET PO PRN ×3 (00:55→21:07)
[2020-12-10 01:47] LABS: Basophils % 0.2 %; Hematocrit 29.5 % (37.5-50.1); Immature Granulocytes % 0.5 % (0-4); Lymphocytes # 0.7 K/mcL (0.6-4.6); Lymphocytes % 5.6 %; Mean Corpuscular HGB Conc 31.5 g/dL (31.6-35.5); Mean Corpuscular Hemoglobin 28.4 pg (28.0-33.3); Mean Corpuscular Volume 89.9 fL (83.0-100.0); Monocytes # 0.4 K/mcL (0.0-1.3); Monocytes % 2.9 %; Platelet Count 444 K/mcL (140-400); Red Blood Count 3.28 M/mcL (4.19-5.50); Red Cell Distribution Width 14.4 % (11.5-14.5); Segmented Neutrophils % 90.8 %; White Blood Count 12.1 K/mcL (4.3-11.1)
[2020-12-10 01:50] LABS: Hemoglobin 9.3 g/dL (12.9-16.9)
[2020-12-10 02:05] LABS: BUN/Creatinine Ratio 9 (6-26); Blood Urea Nitrogen 6 mg/dL (6-20); Calcium 8.7 mg/dL (8.6-10.3); Carbon Dioxide 25 mEq/L (23-29); Chloride 101 mEq/L (98-107); Glucose 133 mg/dL (70-105); Osmolality,Calculated 276 (280-300); Potassium 4.4 mEq/L (3.5-5.1); Sodium 133 mEq/L (136-145); eGFR For African Americans > 60 (> 60); eGFR For Non-African Americans > 60 (> 60)
[2020-12-10] MEDS: *HR* HYDROmorphone (PF) 1 MG/ML SYRINGE IVP PRN ×3 (06:10→16:46)
[2020-12-10] MEDS: lisinopriL 20 MG TABLET PO SCH (09:01)
[2020-12-10] MEDS: Cyanocobalamin (B-12) 1,000 MCG TABLET PO SCH (09:01)
[2020-12-10] MEDS: Cholecalciferol (D-3) 1,000 UNIT (25MCG) TABLET PO SCH (09:01)
[2020-12-11] MEDS: *HR* HYDROcodone/Acet 7.5/325 mg TABLET PO PRN ×3 (05:02→22:15)
[2020-12-11] MEDS: Cholecalciferol (D-3) 1,000 UNIT (25MCG) TABLET PO SCH (07:30)
[2020-12-11] MEDS: lisinopriL 20 MG TABLET PO SCH (07:30)
[2020-12-11] MEDS: Cyanocobalamin (B-12) 1,000 MCG TABLET PO SCH (07:30)
[2020-12-11] MEDS: *HR* Rivaroxaban 10 MG TABLET PO SCH (17:59)
[2020-12-12] MEDS: *HR* HYDROmorphone (PF) 1 MG/ML SYRINGE IVP PRN ×2 (00:10→03:27)
[2020-12-12] MEDS: Cyanocobalamin (B-12) 1,000 MCG TABLET PO SCH (07:33)
[2020-12-12] MEDS: lisinopriL 20 MG TABLET PO SCH (07:33)
[2020-12-12] MEDS: Cholecalciferol (D-3) 1,000 UNIT (25MCG) TABLET PO SCH (07:33)
[2020-12-12] MEDS: *HR* HYDROcodone/Acet 7.5/325 mg TABLET PO PRN ×2 (12:30→18:48)
[2020-12-12] MEDS: *HR* Rivaroxaban 10 MG TABLET PO SCH (17:32)
[2020-12-13] MEDS: *HR* HYDROcodone/Acet 7.5/325 mg TABLET PO PRN ×2 (02:54→10:24)
[2020-12-13] MEDS: Cholecalciferol (D-3) 1,000 UNIT (25MCG) TABLET PO SCH (10:21)
[2020-12-13] MEDS: lisinopriL 20 MG TABLET PO SCH (10:21)
[2020-12-13] MEDS: Cyanocobalamin (B-12) 1,000 MCG TABLET PO SCH (10:21)
[2020-12-13] MEDS: *HR* Rivaroxaban 10 MG TABLET PO SCH (17:05)
[2020-12-14] MEDS: *HR* HYDROcodone/Acet 7.5/325 mg TABLET PO PRN (05:04)
[2020-12-14] MEDS: lisinopriL 20 MG TABLET PO SCH (09:00)
[2020-12-14] MEDS: Cholecalciferol (D-3) 1,000 UNIT (25MCG) TABLET PO SCH (09:00)
[2020-12-14] MEDS: Cyanocobalamin (B-12) 1,000 MCG TABLET PO SCH (09:01)
[2020-12-14] MEDS: *HR* Rivaroxaban 10 MG TABLET PO SCH (16:15)
[2020-12-15] MEDS: lisinopriL 20 MG TABLET PO SCH (08:11)
[2020-12-15] MEDS: Cholecalciferol (D-3) 1,000 UNIT (25MCG) TABLET PO SCH (08:11)
[2020-12-15] MEDS: Cyanocobalamin (B-12) 1,000 MCG TABLET PO SCH (08:11)
[2020-12-15 11:00] VITALS: BP 131/82; PULSE 76; TEMP 98.2; O2SAT 92
[2020-12-15 14:02] LABS: Influenza A PCR Negative (Negative); Influenza B PCR Negative (Negative); Resp. Syncytial Virus PCR Negative (Negative)
[2020-12-15 14:09] LABS: SARS-CoV-2 by PCR (In House) Negative (Negative)
[2020-12-15] MEDS ORDERED: Moderna Covid-19 Vaccine 100MCG/0.5mL IM ONE (14:46)
[2020-12-15] MEDS: *HR* Rivaroxaban 10 MG TABLET PO SCH (16:25)
== END 2020-12-15 19:34 | DRG 240 ==
LOC: SAMDAY 13:32 → 3ANU 20:41
PROVIDERS: ADMIT Surgery Vascular Surgery; ATTEND Surgery Vascular Surgery

== ENCOUNTER 2021-05-05 09:11 | Inpatient (IN) ==
[2021-05-05] MEDS ORDERED: CeFAZolin Syr 2,000MG/20 ML 2,000 MG/20 ML SYRINGE IVPB ONE (09:46)
[2021-05-05] MEDS ORDERED: *HR* Rocuronium Bromide 50 MG/5 ML VIAL ONE ×2 (09:50→14:12)
[2021-05-05] MEDS ORDERED: *HR* Propofol 200 MG/20 ML VIAL IVP ONE (09:50)
[2021-05-05] MEDS ORDERED: Ondansetron 4 MG/2 ML VIAL ONE (09:50)
[2021-05-05] MEDS ORDERED: Lidocaine -MPF 2% 5 ML VIAL ONE (09:50)
[2021-05-05] MEDS ORDERED: *HR* FentaNYL (PF) 100 MCG/2 ML VIAL ONE ×2 (09:50→13:21)
[2021-05-05] MEDS ORDERED: Ringers Solution, Lactated 1,000 ML IVC SCH (10:00)
[2021-05-05] MEDS ORDERED: Heparin 1,000 UNITS/500 mL 1,000 ML ONE (11:19)
[2021-05-05] MEDS ORDERED: Protamine Sulfate 50 MG/5 ML VIAL IVP ONE (11:19)
[2021-05-05] MEDS ORDERED: ceFAZolin 1,000 MG, Sodium Chloride IRRigation 1,000 ML IR ONE (11:25)
[2021-05-05] MEDS ORDERED: Ondansetron 4 MG/2 ML VIAL IVP PRN (11:30)
[2021-05-05] MEDS ORDERED: *HR* HYDROmorphone PF 0.5 MG/0.5 ML SYRINGE IVP PRN (11:30)
[2021-05-05] MEDS ORDERED: *HR* OxyCODONE Immed Rel 5 MG TABLET PO PRN ×2 (11:30→17:22)
[2021-05-05] MEDS ORDERED: Promethazine 6.25 MG in Water for inj. (sterile) 20 ML IVPB PRN (11:30)
[2021-05-05] MEDS ORDERED: *HR* Midazolam HCl 2 MG/2 ML VIAL ONE (12:08)
[2021-05-05] MEDS ORDERED: Acetaminophen IV 1,000 MG/100 ML BAG IVPB ONE ×2 (13:11→13:21)
[2021-05-05] MEDS ORDERED: Albumin Human 5% 25.0 GM/500 ML IV.SOLN ONE (13:15)
[2021-05-05] MEDS ORDERED: Ketamine HCL *QUVA* 50mg (1mL) SYRINGE ONE (13:21)
[2021-05-05] MEDS ORDERED: *HR* Heparin 5,000 UNIT/ML VIAL ONE ×2 (14:09→15:08)
[2021-05-05] MEDS ORDERED: Sugammadex Sodium 200 MG/2 ML VIAL IV ONE (16:24)
[2021-05-05] MEDS ORDERED: Naloxone 0.4 MG/ML INJ IVP PRN (17:22)
[2021-05-05] MEDS ORDERED: *HR* Labetalol 20 MG/4 ML SYRINGE IVP PRN (17:22)
[2021-05-05] MEDS ORDERED: Acetaminophen 325 MG TABLET PO PRN (17:22)
[2021-05-05] MEDS ORDERED: *HR* HYDROcodone/Acet 5/325 mg TABLET PO PRN (17:22)
[2021-05-05] MEDS: CeFAZolin 2 GM/120 ML BAG IVPB SCH (23:50)
[2021-05-06 03:21] LABS: Basophils % 0.2 %; Eosinophils % 0.2 %; Hematocrit 26.5 % (37.5-50.1); Hemoglobin 8.2 g/dL (12.9-16.9); Immature Granulocytes % 0.3 % (0-4); Lymphocytes # 1.7 K/mcL (0.6-4.6); Lymphocytes % 13.6 %; Mean Corpuscular HGB Conc 30.9 g/dL (31.6-35.5); Mean Corpuscular Hemoglobin 26.5 pg (28.0-33.3); Mean Corpuscular Volume 85.5 fL (83.0-100.0); Mean Platelet Volume 10.6 fL (9.4-12.4); Monocytes # 0.9 K/mcL (0.0-1.3); Platelet Count 247 K/mcL (140-400); Red Cell Distribution Width 16.3 % (11.5-14.5); Segmented Neutrophils % 78.7 %; White Blood Count 12.7 K/mcL (4.3-11.1)
[2021-05-06 03:41] LABS: BUN/Creatinine Ratio 13 (6-26); Blood Urea Nitrogen 11 mg/dL (6-20); Calcium 8.2 mg/dL (8.6-10.3); Carbon Dioxide 25 mEq/L (23-29); Chloride 107 mEq/L (98-107); Glucose 140 mg/dL (70-105); Osmolality,Calculated 286 (280-300); Potassium 4.2 mEq/L (3.5-5.1); Sodium 137 mEq/L (136-145); eGFR For African Americans > 60 (> 60); eGFR For Non-African Americans > 60 (> 60)
[2021-05-06] MEDS: CeFAZolin 2 GM/120 ML BAG IVPB SCH ×2 (08:34→15:25)
[2021-05-06] MEDS ORDERED: Cyanocobalamin (B-12) 1,000 MCG TABLET PO SCH (09:00)
[2021-05-06] MEDS ORDERED: Cholecalciferol (D-3) 1,000 UNIT (25MCG) TABLET PO SCH (09:00)
[2021-05-06] MEDS ORDERED: lisinopriL 10 MG TABLET PO SCH (09:00)
[2021-05-06 12:50] VITALS: TEMP 98.4
[2021-05-06 15:16] VITALS: BP 128/71; PULSE 92; O2SAT 93
== END 2021-05-06 17:00 | disposition home or self-care (01) | DRG 181 ==
LOC: SAMDAY 09:11 → 2NNU 17:20
PROVIDERS: ADMIT Surgery Vascular Surgery; ATTEND Surgery Vascular Surgery

== ENCOUNTER 2021-11-10 06:11 | Inpatient (IN) ==
[~2021-11-10 06:11] MED LIST changes: -Acetaminophen IV 1,000 MG/100 ML BAG IVPB ONE; -Ringers Solution, Lactated 1,000 ML IVC ONE; +ceFAZolin 1,000 MG, Sodium Chloride IRRigation 1,000 ML IR ONE
[2021-11-10] MEDS ORDERED: CeFAZolin Syr 2,000MG/20 ML 2,000 MG/20 ML SYRINGE IVPB ONE (06:33)
[2021-11-10] MEDS ORDERED: Ringers Solution, Lactated 1,000 ML IVC SCH (06:45)
[2021-11-10] MEDS ORDERED: *HR* FentaNYL (PF) 100 MCG/2 ML VIAL ONE ×2 (06:57→10:16)
[2021-11-10] MEDS ORDERED: *HR* Propofol 200 MG/20 ML VIAL IVP ONE (06:57)
[2021-11-10] MEDS ORDERED: Sugammadex Sodium 200 MG/2 ML VIAL IV ONE (06:58)
[2021-11-10] MEDS ORDERED: Ondansetron 4 MG/2 ML VIAL ONE (06:58)
[2021-11-10] MEDS ORDERED: Lidocaine -MPF 2% 5 ML VIAL ONE (06:58)
[2021-11-10] MEDS ORDERED: *HR* Rocuronium Bromide 50 MG/5 ML VIAL ONE ×3 (06:58→10:57)
[2021-11-10] MEDS ORDERED: NiCARdipine 2.5 MG/10 ML Syringe IVPB ONE (07:04)
[2021-11-10] MEDS ORDERED: *HR* Vasopressin 20 UNIT/ML VIAL ONE (07:04)
[2021-11-10] MEDS ORDERED: Heparin 1,000 UNITS/500 mL 500 ML ONE ×2 (07:45→07:53)
[2021-11-10 07:49] LABS: Basophils # 0.1 K/mcL (0.0-0.2); Basophils % 0.7 %; Eosinophils # 0.6 K/mcL (0.0-0.6); Eosinophils % 5.6 %; Hematocrit 36.9 % (37.5-50.1); Immature Granulocytes % 0.4 % (0-4); Lymphocytes # 2.1 K/mcL (0.6-4.6); Mean Corpuscular HGB Conc 29.8 g/dL (31.6-35.5); Mean Corpuscular Hemoglobin 24.9 pg (28.0-33.3); Mean Corpuscular Volume 83.7 fL (83.0-100.0); Mean Platelet Volume 10.1 fL (9.4-12.4); Monocytes # 1.2 K/mcL (0.0-1.3); Monocytes % 11.7 %; Platelet Count 337 K/mcL (140-400); Red Blood Count 4.41 M/mcL (4.19-5.50); Red Cell Distribution Width 18.4 % (11.5-14.5); Segmented Neutrophils % 60.6 %
[2021-11-10] MEDS ORDERED: Protamine Sulfate 50 MG/5 ML VIAL IVP ONE (07:53)
[2021-11-10] MEDS ORDERED: *HR* Midazolam HCl 2 MG/2 ML VIAL ONE (07:56)
[2021-11-10 08:00] LABS: Prothrombin Time 11.4 Seconds (9.4-12.1)
[2021-11-10] MEDS ORDERED: ceFAZolin 1,000 MG, Sodium Chloride IRRigation 1,000 ML IR ONE (08:15)
[2021-11-10] MEDS ORDERED: *HR* Heparin 5,000 UNIT/ML VIAL ONE (09:44)
[2021-11-10] MEDS ORDERED: Acetaminophen IV 1,000 MG/100 ML BAG IVPB ONE (10:52)
[2021-11-10] MEDS ORDERED: Ketamine HCL *QUVA* 50mg (1mL) SYRINGE ONE (11:00)
[2021-11-10] MEDS ORDERED: *HR* Magnesium Sulfate 1 GM/2 ML VIAL ONE (11:10)
[2021-11-10 11:11] LABS: ABG Base Excess -1 mEq/L (-2 to 3); ABG Chloride 106 mEq/L (98-107); ABG Glucose 109 mg/dL (60-95); ABG HCO3 24 mEq/L (21-27); ABG Ionized Calcium 1.14 mmol/L (1.15-1.35); ABG Oxygen Saturation 100 % (95-98); ABG PCO2 40 mmHg (35-45); ABG PH 7.39 pH Units (7.32-7.45); ABG PO2 230 mmHg (85-104); ABG TCO2 26 mEq/L (20-26)
[2021-11-10] MEDS ORDERED: *HR* HYDROMORPHONE 2 MG/ML VIAL ONE (12:15)
[2021-11-10] MEDS ORDERED: *HR* Labetalol 20 MG/4 ML SYRINGE IVP ONE (12:46)
[2021-11-10] MEDS ORDERED: Naloxone 0.4 MG/ML INJ IVP PRN (13:57)
[2021-11-10] MEDS ORDERED: *HR* Labetalol 20 MG/4 ML SYRINGE IVP PRN (13:57)
[2021-11-10] MEDS ORDERED: Ondansetron 4 MG/2 ML VIAL IVP PRN (13:57)
[2021-11-10] MEDS ORDERED: *HR* OxyCODONE Immed Rel 5 MG TABLET PO PRN (13:57)
[2021-11-10] MEDS ORDERED: Acetaminophen 325 MG TABLET PO PRN (13:57)
[2021-11-10] MEDS: CeFAZolin 2 GM/120 ML BAG IVPB SCH (18:27)
[2021-11-10] MEDS: *HR* HYDROcodone/Acet 5/325 mg TABLET PO PRN (18:27)
[2021-11-11] MEDS: CeFAZolin 2 GM/120 ML BAG IVPB SCH ×2 (00:58→09:09)
[2021-11-11] MEDS: *HR* HYDROcodone/Acet 5/325 mg TABLET PO PRN (04:40)
[2021-11-11 06:04] LABS: Basophils % 0.2 %; Eosinophils % 0.1 %; Hematocrit 32.4 % (37.5-50.1); Hemoglobin 9.7 g/dL (12.9-16.9); Immature Granulocytes % 0.3 % (0-4); Lymphocytes # 2.3 K/mcL (0.6-4.6); Lymphocytes % 13.7 %; Mean Corpuscular HGB Conc 29.9 g/dL (31.6-35.5); Mean Corpuscular Hemoglobin 25.3 pg (28.0-33.3); Mean Corpuscular Volume 84.4 fL (83.0-100.0); Mean Platelet Volume 10.8 fL (9.4-12.4); Monocytes % 15.2 %; Neutrophils # 11.8 K/mcL (1.6-8.9); Platelet Count 310 K/mcL (140-400); Red Blood Count 3.84 M/mcL (4.19-5.50); Red Cell Distribution Width 18.3 % (11.5-14.5); Segmented Neutrophils % 70.5 %
[2021-11-11 06:14] LABS: Monocytes # 2.6 K/mcL (0.0-1.3); White Blood Count 16.8 K/mcL (4.3-11.1)
[2021-11-11 06:32] LABS: BUN/Creatinine Ratio 17 (6-26); Blood Urea Nitrogen 14 mg/dL (6-20); Calcium 8.7 mg/dL (8.6-10.3); Carbon Dioxide 26 mEq/L (23-29); Chloride 104 mEq/L (98-107); Glucose 125 mg/dL (70-105); Osmolality,Calculated 282 (280-300); Potassium 4.5 mEq/L (3.5-5.1); Sodium 135 mEq/L (136-145)
[2021-11-11 07:33] VITALS: BP 93/77; PULSE 67; TEMP 97.5; O2SAT 99
[2021-11-11] MEDS ORDERED: lisinopriL 20 MG TABLET PO SCH (09:00)
[2021-11-11] MEDS ORDERED: Cyanocobalamin (B-12) 1,000 MCG TABLET PO SCH (09:00)
[2021-11-11] MEDS ORDERED: Aspirin Enteric Coated 81 MG Tablet PO SCH (09:00)
[2021-11-11] MEDS ORDERED: Cholecalciferol (D-3) 1,000 UNIT (25MCG) TABLET PO SCH (09:00)
== END 2021-11-11 11:33 | disposition home or self-care (01) | DRG 181 ==
LOC: SAMDAY 06:11 → 2NNU 13:57
PROVIDERS: ADMIT Surgery Vascular Surgery; ATTEND Surgery Vascular Surgery